=== PATIENT | female | born 1945 | race Caucasian/White ===

== ENCOUNTER 2017-12-08 03:03 | Inpatient (IN) ==
[2017-12-08] MEDS ORDERED: PROCHLORPERAZINE 10 MG TABLET PO ONE (03:13)
[2017-12-08] MEDS ORDERED: DICYCLOMINE 20mg TABLET PO ONE (03:13)
[2017-12-08] MEDS ORDERED: RANITIDINE 150 MG TABLET PO ONE (03:13)
--- NOTE | 2017-12-08 03:30 | Emergency Department Report ---
Abdominal Pain HPI - General Chief Complaint: Abdominal Pain <SeptemberSrikanth [facility] 12/08/17 07:44> Stated Complaint: stomach pains <SeptemberSrikanth [facility] 12/08/17 07:44> Time Seen by Provider: 12/08/17 03:05 <SeptemberSrikanth [facility] 12/08/17 07:44> Source: patient <Tito Markham [facility] 12/08/17 03:31> Mode of arrival: ambulatory <Tito Markham [facility] 12/08/17 03:31> Limitations: no limitations <Tito Markham [facility] 12/08/17 03:31> - History of Present Illness HPI narrative: Patient presents with 24-hour history of diffuse waxing and waning crampy abdominal pain. No nausea, no diarrhea, no chills or fever. Patient has tried 2 doses of Gas-X, and 2 doses of the stool softener she thought she might be constipated. Patient has sat on the toilet and "given a lot of effort" she was able to pass a small amount of firm stool. Patient has been eating normally up until today, and has had very little to eat today due to the pain. Yesterday the patient had a normal intake, 2 normal bowel movements, and patient does not normally have any pains like this. <Tito Markham 12/08/17 03:31> - Related Data Home Medications Medication Instructions Recorded Confirmed Nitroglycerin [Nitrostat] 0.4 mg SL Q5MIN3 PRN #0 12/26/11 12/08/17 LORazepam [Lorazepam] 1 mg PO BID PRN #0 tab 08/08/14 12/08/17 Acetaminophen [Acetaminophen Extra 500 mg PO Q4H PRN 01/12/17 12/08/17 Strength] Clopidogrel [Plavix] 75 mg PO DAILY 09/09/17 12/08/17 Sertraline [Zoloft] 50 mg PO DAILY 09/09/17 12/08/17 Warfarin [Coumadin] 2.5 mg PO HS 09/09/17 12/08/17 Amiodarone [Pacerone] 200 mg PO DAILY 12/08/17 12/08/17 Warfarin Sodium [Coumadin] 5 mg PO 3XW 12/08/17 12/08/17 <SeptemberSrikanth 12/08/17 07:44> Allergies Allergy/AdvReac Type Severity Reaction Status Date / Time amoxicillin Allergy Unknown Verified 12/08/17 03:13 <September,Srikanth 12/08/17 07:44> Review of Systems All systems: reviewed and negative except as stated <ShahrzadTito Gonzalez 03:31> [facility] Patient Stated Medical History Angina Yes Cardiac Arrhythmia Yes: afib Hypertension Yes Myocardial Infarction Yes Hx Urinary Tract Infection Yes Post Menopausal Yes Clinic Medical History (Last Updated 03/20/17 @ 10:56 by Katelyn Osman Jorge) Atrial fib/flutter, transient (Chronic Medical) Chest pain (Chronic Medical) Depression (Chronic Medical) Breast cancer (Resolved Medical) Heart attack (Inactive Medical) <September,Srikanth 12/08/17 07:44> Medical History Updates: UTIs <ShahrzadTito 12/08/17 03:31> Surgical History: Heart stent, Lt TKA, hysterectomy, appendectomy, wrist fx, Cervical impingement <ShahrzadTito 12/08/17 03:31> Family History: Family History (Last Updated 03/20/17 @ 10:57 by Katelyn Osman Jorge) Father No problems noted. <September,Srikanth 12/08/17 07:44> - Social History Smoking status: Never smoker <Shahrzad12/08/17 03:31> Substance use type: does not use <ShahrzadTito 12/08/17 03:31> Alcohol intake frequency: does not drink <Tito Markham 12/08/17 03:31> Household members: none <Tito Markham 12/08/17 03:31> Current occupational status: retired <Tito Markham 12/08/17 03:31> Current occupational exposures/hazards: No <Tito Markham 12/08/17 03:31> Does patient use chewing tobacco?: No <Tito Markham 12/08/17 03:31> Physical Exam - Limitations Limitations: no limitations <Tito Markham 12/08/17 03:31> - General General appearance: alert, in no apparent distress (patient rates her discomfort currently a 2 out of 10,) <Markham12/08/17 03:31> - Normal Exams: Head:: Normocephalic without trauma <Markham12/08/17 03:31> Eyes:: Pupils are PERRLA w/ EOMI, No scleral icterus, irritation, or foreign bodies noted <Mrakham12/08/17 03:31> ENMT:: No facial trauma, nasal exudates, pharyngeal erythema, or exudates are noted <Markham12/08/17 03:31> Neck:: Full range of motion, without adenopathy, JVD, bruits or thyromegaly < Markham12/08/17 03:31> Chest/Respirations:: Clear all dominique, with good airflow, and symmetry bilaterally <Markham12/08/17 03:31> Cardiovascular:: Regular rate and rhythm, without murmur or gallop, Pulses 2+ all extremities, capillary refill, <2 seconds all extremities <Markham12/08/17 03:31> Lymphatic:: No lymphadenopathy, or lymphedema noted <Markham 03:31> Musculoskeletal:: No tenderness, or deformity noted, good range of motion, all extremities <Markham12/08/17 03:31> Integumentary:: No rashes, hives, or bruising noted, hair and nails, without abnormality <Markham12/08/17 03:31> Neurological:: Patient is alert, and oriented, cranial nerves, motor/sensory/ cerebellar, exams w/o gross deficits, to observation <Markham,12/08 03:31> Psychiatric:: Patient exhibits, appropriate attention, emotion and affect < Markham12/08/17 03:31> - Abdominal Exam Abdominal exam: Present: soft, tenderness (mild diffuse tenderness, no guarding no rebounding), normal bowel sounds (slightly diminished but normal in all 4 quadrants). Absent: distention, guarding, rebound, rigidity, trauma, incision, psoas sign, obturator sign, heel tap sign, Knight's sign, Rovsing's sign, tenderness at McBurney's Point, mass, bruit, pulsatile mass, hernia, scar < Tito Markham - 12/08/17 03:31> Course - Consultations Consultation #1: Hospitalist: Will accept pt for admission and treatment of SBO. <SeptemberSrikanth 12/08/17 07:44> Time: 07:31 <September,[facility] 12/08/17 07:32> Vital Signs Temperature 98.8 F 12/08/17 03:03 Pulse Rate 75 12/08/17 03:03 Respiratory Rate 18 12/08/17 03:03 Blood Pressure 131/61 12/08/17 03:03 Pulse Oximetry 94 12/08/17 03:03 Temperature 98.8 F 12/08/17 03:03 Pulse Rate 75 12/08/17 03:03 Respiratory Rate 18 12/08/17 03:03 Blood Pressure 131/61 12/08/17 03:03 Pulse Oximetry 94 12/08/17 03:03 <September,Srikanth 12/08/17 07:44> Abdominal Pain - MDM Narrative Medical decision making narrative: Pt with an SBO and UTI; will treat pt with cefepime for UTI. Hospitalist will admit pt for SBO. <SeptemberFaustoSrikanth M 12/08/17 07:44> Patient is given Compazine, Zantac, and dicyclomine - after medications given, patient is rechecked, and she feels as though she "might be better, but is still having abdominal pain. When given various options, the patient would like to wait and see if the oral medications we'll give her any further relief before deciding whether to go home or whether to check labs and give IV fluids 0510 - on second recheck patient is still having some mild cramping in the right upper quadrant, and is deeply concerned about her lack of bowel movements today. When I explained to her that she has had very little intake, and that is the primary stimulus for bowel movement, her concern was not diminished. Patient has an IV started, is getting Toradol 30 mg IV with 1 L normal saline, and we will undertake labs and abdominal series x-rays to further evaluate the patient's primary complaint of generalized abdominal cramping pain Patient care is transferred to Dr. Aggarwal, pending results of IV fluids, medications, and lab/x-rays <Tito Markham - 12/08/17 05:41> - Differential Diagnosis Differential diagnosis: Likely: abdominal pain, acute appendicitis, constipation , diverticulitis, gastroenteritis, pancreatitis, small bowel obstruction <September [facility] - 12/08/17 05:55> - Medical Records Attestation: I reviewed the patient's medical records. <September,[facility] 05:55> - Lab Data Attestation: I reviewed the patient's lab results. <[facility] 12/08/17 05: 55> Result diagrams: 12/08/17 05:51 12/08/17 05:51 <September,[facility] 12/08/17 07:44> Lab Results 12/08/17 12/08/17 12/08/17 Range/Units 05:51 05:51 05:51 WBC 8.8 (4.5-11.0) T/MM3 RBC 4.04 (4.00-5.20) M/MM3 Hgb 13.0 (12-16) GM/DL Hct 38.5 (36-46) % MCV 95.3 (80-100) UM3 MCH 32.2 (26-34) UUG MCHC 33.8 (31-37) GM/DL RDW Std Deviation 45.4 (36.9-50.2) FL Plt Count 205 (130-400) T/MM3 MPV 10.3 (9.4-12.4) UM3 Immature Gran % (Auto) 0.2 (0.0-0.5) % Neut % (Auto) 76.0 H (33-66) % Lymph % (Auto) 14.7 L (23-45) % [place] % (Auto) 8.3 (0-9.0) % Eos % (Auto) 0.6 (0-4) % Baso % (Auto) 0.2 (0-2) % Neut # (Auto) 6.7 (1.8-7.7) T/MM3 Lymph # (Auto) 1.3 (1-4.8) T/MM3 [place] # (Auto) 0.7 (0-0.8) T/MM3 Eos # (Auto) 0.1 (0-0.5) T/MM3 Baso # (Auto) 0.0 (0-0.2) T/MM3 Abs Immat Gran (auto) 0.02 (0.00-0.03) T/MM3 Turbidity < 20 (0-20) Sodium 149 H (136-146) MEQ/L Potassium 4.1 (3.6-5) MEQ/L Chloride 113 H (98-107) MEQ/L Carbon Dioxide 21 L (22-30) MEQ/L Anion Gap 15 (5-15) meq/L BUN 23.0 H (7-17) MG/DL Creatinine 0.8 (0.7-1.2) mg/dL Estimated Creat Clear 61 (>50) mL/min GFR Calculation 71 (>60) mL/min BUN/Creatinine Ratio 29 H (6-26) RATIO Glucose 122 H (65-110) MG/DL Calculated Osmolality 291 H (261-280) MOSM/KG Calcium 9.7 (8.4-10.2) MG/DL Total Bilirubin 0.50 (0.20-1.30) MG/DL Conjugated Bilirubin 0.00 (0.00-0.30) mg/dL Unconjugated Bilirubin 0.50 (0.00-1.1) mg/dL Icterus Index < 2 (0-7) AST 21 (14-36) U/L ALT 15 (1-35) U/L Alkaline Phosphatase 61 (38-126) U/L Total Protein 7.8 (6.3-8.2) g/dL Albumin 4.8 (3.5-5.0) g/dL Globulin 3.0 (2.4-3.6) G/DL Albumin/Globulin Ratio 1.6 (1.1-2.2) RATIO Lipase 205 (23-300) U/L Specimen Hemolysis < 15 (0-25) Ur Collection Type Urine, void-cc/notcc Urine Color Yellow (YELLOW) Urine Clarity Sl cloudy Urine pH 6.0 (5.0-8.0) Ur Specific [place] 1.020 (1.015-1.025) Urine Protein Trace A (NEGATIVE) Urine Glucose (UA) Negative (NEGATIVE) Urine Ketones Negative (NEGATIVE) Urine Occult Blood Trace-intact (NEGATIVE) Urine Nitrate Negative (NEGATIVE) Urine Bilirubin Negative (NEGATIVE) Urine Urobilinogen 0.2 (NORMAL) EU/DL Ur Leukocyte Esterase 1+ A (NEGATIVE) Urine RBC 0-1 (0-3) /HPF Urine WBC 50-200 H (0-5) /HPF Urine Bacteria 4+ H (NEGATIVE) Ur Culture Indicated? Cult reflexed &setup <12/08/17 07:44> - Radiology Data Attestation: I reviewed the patient's radiology results. < 05:55> KUB: Nonobstructing bowel gas pattern. No free air or fluid under the diaphragm. Dilated loops of small bowel present with air-fluid levels concerning for SBO. CT abd/pelv: FINDINGS: Abdomen pelvis:Liver, gallbladder, spleen, pancreas, both adrenals and both kidneys are normal.Normal caliber aorta. Prior appendectomy. There are multiple distended small bowel segments in the abdomen which measure up to 3.5 cm, with distal decompression compatible with a bowel obstruction. No inguinal hernia. Mild fecal retention in the large intestine. Sigmoid diverticulosis without diverticulitis. Absent uterus. Unremarkable urinary bladder. No free fluid or free air. Multilevel degenerative change of the spine. IMPRESSION: Mid small bowel obstruction. <12/08/17 07:32> Disposition Clinical Impression: Hx SBO <12/08/17 07:44> Disposition: 02 To [facility] Acute Care <12/08/17 07:44> Print Language: Djib[place]ian <12/08/17 07:44> Condition: Improved <12/08/17 07:44> Instructions: <12/08/17 07:44> Prescriptions: No Action Clopidogrel [Plavix] 75 mg PO DAILY Warfarin [Coumadin] 2.5 mg PO HS Amiodarone [Pacerone] 200 mg PO DAILY Warfarin Sodium [Coumadin] 5 mg PO 3XW Nitroglycerin [Nitrostat] 0.4 mg SL Q5MIN3 PRN #0 PRN Reason: Chest Pain LORazepam [Lorazepam] 1 mg PO BID PRN #0 tab PRN Reason: PRN ORDERS Acetaminophen [Acetaminophen Extra Strength] 500 mg PO Q4H PRN PRN Reason: Pain Sertraline [Zoloft] 50 mg PO DAILY <May,Srikanth 12/08/17 07:44> Referrals: Capri Maldonado MD [Primary Care Provider] - <SeptemberSrikanth 12/08/17 07:44> Forms: <SeptemberSrikanth 12/08/17 07:44> Time of Disposition: 07:44 <September,Srikanth 12/08/17 07:44> - Seen By: physician <SeptemberSrikanth 12/08/17 07:44>
[2017-12-08] MEDS ORDERED: KETOROLAC 30 MG/ML INJECTION IVP ONE (05:13)
[2017-12-08] MEDS ORDERED: NS 1,000 ML IV ONE (05:13)
[2017-12-08] MEDS: SALINE FLUSH 10ml SYRINGE IVF PRN ×2 (05:49→12:56)
[2017-12-08] MEDS ORDERED: NS 1,000 ML IV SCH (06:15)
[2017-12-08] MEDS ORDERED: IOHEXOL 300mg/ml 100ml INJECTION ONE (06:17)
[2017-12-08] MEDS ORDERED: CEFEPIME 1 GM in NS 100 ML IV ONE (07:35)
[2017-12-08] MEDS: 1/2 NS 1,000 ML IV SCH ×2 (09:30→20:37)
[2017-12-08] MEDS ORDERED: ONDANSETRON 4 MG/2 ML INJECTION IVP PRN (09:33)
[2017-12-08] MEDS ORDERED: MORPHINE SULFATE 2mg INJECTION IVP PRN (09:33)
--- NOTE | 2017-12-08 10:17 | History & Physical Report ---
History of Present Illness Date: 12/08/17 Chief complaint: SBO, UTI HPI: Cindy Machuca is a pleasant patient of Dr. Maldonado, who also follows with Dr. Stepan Fuentes for her a-fib and CAD as well as Dr. Millan due to her history of breast cancer in 1999. She reports that yesterday, 12/07/17, she began to have colicky, gas like abdominal pain which progressively worsened throughout the night. She also complains of some nausea but denies any vomiting. She denies any recent illnesses, fevers, chills, chest pain, shortness of breath or diarrhea. She does admit to constipation and reports having a hard stool yesterday. While at home, she tried 2 doses of Gas-X and 2 doses of stool softener without improvement. She has a history of bowel obstruction in 2014. Due to her increasing pain, she presented to [facility] ED today, 12/08/17. Labs revealed hypernatremia (Na 149) with mild hyperglycemia (Glu 122). She denies a history of diabetes. UA revealed 50-200 WBC with 4+ bacteria. She has a history of frequent UTIs and is unable to specify if she has had any recent dysuria or urinary symptoms. CT abdomen/pelvis revealed mid small bowel obstruction with noted diverticulosis and no diverticulitis. Dr. Lee was consulted and she was accepted into inpatient status for further evaluation, IV hydration, close monitoring for deterioration and possible surgical consultation. Immediately prior to her leaving the ED to be transferred to the floor, she had a large BM. She denies any blood or dark tarry stools. Review of Systems All systems PM: 10-point ROS was reviewed, no additional remarkable complaints except - Constitutional Constitutional: Present: fatigue, weakness (generalized). Absent: fever(s) Comments: Decreased appetite - EENMT Eyes: Absent: diplopia, loss of vision, photophobia Ears: Absent: ear pain Balance: Absent: falling to one side Nose: Absent: nosebleeds Mouth/Throat: Present: dry mouth. Absent: sore throat, changes in swallowing - Cardiovascular Cardiovascular: Present: edema. Absent: chest pain, palpitations, syncope, dyspnea on exertion, orthopnea Rhythm: Present: regular rhythm Vascular: Present: pedal edema. Absent: pallor of an extermity, unilateral swelling - Respiratory Respiratory: Absent: cough, dyspnea, hemoptysis, dyspnea on exertion, wheezing - Gastrointestinal Gastrointestinal: Present: abdominal pain, constipation, nausea. Absent: diarrhea, hematochezia, melena, vomiting - Genitourinary Genitourinary: Absent: flank pain, hematuria Menstruation: post hysterectomy - Musculoskeletal Musculoskeletal: Present: muscle weakness. Absent: back pain, deformity, limited range of motion - Integumentary/Breasts Integumentary: Absent: rash - Neurological Neurological: Present: weakness. Absent: confusion, dizziness, focal weakness - Psychiatric Psychiatric: Present: depression - Endocrine Endocrine: Absent: cold intolerance, heat intolerance, palpitations - Hematologic/Lymphatic Hematologic/Lymphatic: Present: easy bruising (warfarin and Plavix) - Allergic/Immunologic Allergic/Immunologic: Absent: seasonal rhinorrhea Past Medical History Medical History: Medical History (Last Updated 12/08/17 @ 11:23 by PAUL Hernandez) Constipation GERD (gastroesophageal reflux disease) History of recurrent UTI (urinary tract infection) follows with Dr. Martinez. History of small bowel obstruction 2014 - laproscopic evaluation for SBO with enterolysis and subsequent appendectomy due to acute appendicitis with periappendiceal abscess; Dr. Avery Farnsworth Hyperlipidemia Hypertension Atrial fib/flutter, transient Chest pain Depression Breast cancer 1999- underwent chemo and radiation following right lumpectomy, Dr. Millan. Heart attack 2015 Surgical History: Laporscopy of abdomen with enterolysis for SBO and subsequent appendectomy for acute appendicitis with periappendical abscess - Dr. Rufina Farnsworth at [facility] in [place] - 06/2014. Heart stent - 2015. Left TKA - 2006. Right breast lumpectomy (history of breast cancer) - 1999. Cerivcal laminectomy. Hysterectomy. 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 Maldonado. Cardio - Dr. Stepan Fuentes. Surg - Dr. Rufina Farnsworth. Onc - Dr. Millan. Medications Home Medications Medication Instructions Recorded Confirmed Type Nitroglycerin [Nitrostat] 0.4 mg SL Q5MIN3 PRN #0 12/26/11 12/08/17 History LORazepam [Lorazepam] 1 mg PO BID PRN #0 tab 08/08/14 12/08/17 History Acetaminophen [Acetaminophen Extra 500 mg PO Q4H PRN 01/12/17 12/08/17 History Strength] Clopidogrel [Plavix] 75 mg PO DAILY 09/09/17 12/08/17 History Sertraline [Zoloft] 50 mg PO DAILY 09/09/17 12/08/17 History Warfarin [Coumadin] 2.5 mg PO HS 09/09/17 12/08/17 History Amiodarone [Pacerone] 200 mg PO DAILY 12/08/17 12/08/17 History Warfarin Sodium [Coumadin] 5 mg PO 3XW 12/08/17 12/08/17 History Allergies Allergy/AdvReac Type Severity Reaction Status Date / Time amoxicillin Allergy Unknown Verified 12/08/17 03:13 Exam Vital Signs: Temperature 99.3 F 12/08/17 09:00 Pulse Rate 66 12/08/17 09:00 Respiratory Rate 20 12/08/17 09:00 Blood Pressure 112/60 12/08/17 09:00 Pulse Oximetry 94 12/08/17 09:00 Height/Weight/BMI: Height 5 ft 9 in Weight 207 lb 7.28 oz Body Mass Index 30.6 Comments: Patient is seen immediately upon arrival to the medical floor. She denies any current pain or nausea. - Constitutional Present: no acute distress, well nourished, well developed, obese, cooperative - Routine HEENT Exam Head: Present: normocephalic, atraumatic Eye: Present: PERRL. Absent: conjunctival icterus ENT: Present: mucous membranes dry, oropharynx clear, dentition normal - Routine Neck Exam Present: supple, trachea midline - Routine Chest/Breast/Axilla Exam Chest wall: Absent: pacemaker - Routine Respiratory Exam Present: CTA bilaterally. Absent: respiratory distress, wheezes - Routine Cardiovascular Exam Present: RRR, S1, S2 - Routine Abdominal Exam Present: soft, non distended, non tender Comments: Hypoactive bowel sounds. - Routine Extremities Exam Present: edema (L>R), non tender, full ROM, pulses intact - Routine Back/Spine/Pelvis Exam Back/Spine: Present: full ROM. Absent: vertebral tenderness - Routine Skin Exam Present: intact, dry, warm Comments: Afebrile. - Routine Neurological Exam Present: alert, oriented X3, moving all extremities, hearing grossly intact, normal speech - Routine Psychiatric Exam Present: normal affect, cooperative Results - Labs CBC & Chem 7: 12/08/17 05:51 12/08/17 05:51 Microbiology Results: Microbiology 12/08/17 05:51 Urine, Voided (Cc/notcc) Urine Culture - Preliminary Culture Initiated - Results Pending Assessment and Plan Assessment and Plan: Assessment Acute small bowel obstruction Acute abdominal pain with nausea UTI, present on admission Hypernatremia (Na 149), present on admission A-fib Chronic anticoagulation on warfarin secondary to a-fib Hypertension Hyperlipidemia Constipation Depression History of breast cancer - 1999 Hx recurrent UTI with antimicrobial resistant organism Obesity with BMI 30.6 Plan Patient admitted to inpatient status under the care of Dr. Lee. While in the ED, she received 1L NS bolus as well as ketorolac 30mg IV x 1 dose , compazine 10mg po x 1 dose and Zantac 300mg po x 1 dose. She also received Bentyl 20mg po x 1 dose. Nursing reports patient had a large BM immediately prior to being transferred to the medication floor. Pain improved and nausea resolved. Continue pain control with morphine PRN. Zofran as needed for nausea/vomiting. Given the patient's improved condition as well as resolution in nausea without vomiting, will hold off on NG placement. Recommend placement of NG if patient begins vomiting or pain worsens. Maintain NPO status with sips and chips. May take home medications. Continue amiodarone 200mg daily, Plavix 75mg daily and Coumadin for treatment of a-fib and DVT prophylaxis. Pharmacy to manage Coumadin. Protonix for GI protection. Will check INR now given chronic anticoagulation with warfarin. Pharmacy consulted for warfarin management. Recheck labs in AM to monitor blood counts, electrolytes and renal function. Upon discharge, patient's care will be returned to her PCP, Dr. Maldonado. Patient requests to be a LIMITED CODE and does not want intubation. DVT Prophylaxis: SCD's, Coumadin GI Prophylaxis: Protonix Resuscitation Status: Do Not Intubate - Time spent with patient Time with patient PN: 70 minutes - Physician Narrative Physician: Mian Lee MD Narrative: Date: 12/08/17 Time: 1400 Have independently interviewed & examined pt. Chart reviewed. Case discussed with ED physician & my PA. Care plan developed with my supervision; agree with above. Started feeling ab pain yesterday - diffuse discomfort, notes more so to RUQ under rib cage. Would wax and wane. Positional changes increased pain. Nothing really decreased discomfort. Ate minimally yesterday-not hungry. Not change in symptoms with fluid increase. Progressively more nauseated. Last stool on 12/06- small and hard. No recent diarrhea. Not having f/c. Breathing well. No chest pressure, pain, or palpitations. Presents to ED for evaluation as symptoms persistent. KUB and CT ab/pelvis showing evidence for SBO. Had large stool as leaving ER-not passing flatus since her bowel movement. Lungs: clear bilaterally CV: regular AB: soft, flat, nd. BS very minimal. No rebound. EXT: trace edema, SCD in place MSE: awake alert appropriate Plan: Inpatient admission for treatment of small bowel obstruction determined radiographically. NPO for bowel rest due to SBO. Hold on NG at this time as nausea not intractable. Control pain and nausea. IVF for hydration and to correct hypernatremia. Monitor lab. Recheck KUB/upright in am. Care to return to PCP at time of discharge. Hospital Course Summary Disclaimer: The visit summary below is not to be considered part of the above Progress Note. Hospital Course: 12/08/17 Patient admitted to inpatient status under the care of Dr. Lee. While in the ED, she received 1L NS bolus as well as ketorolac 30mg IV x 1 dose , Compazine 10mg po x 1 dose and Zantac 300mg po x 1 dose. She also received Bentyl 20mg po x 1 dose. Nursing reports patient had a large BM immediately prior to being transferred to the medication floor. Pain improved and nausea resolved. Continue pain control with morphine PRN. Zofran as needed for nausea/vomiting. Given the patient's improved condition as well as resolution in nausea without vomiting, will hold off on NG placement. Recommend placement of NG if patient begins vomiting or pain worsens. Maintain NPO status with sips and chips. May take home medications. Continue amiodarone 200mg daily, Plavix 75mg daily and Coumadin for treatment of a-fib and DVT prophylaxis. Pharmacy to manage Coumadin. Protonix for GI protection. Will check INR now given chronic anticoagulation with warfarin. Pharmacy consulted for warfarin management. Recheck labs in AM to monitor blood counts, electrolytes and renal function. Upon discharge, patient's care will be returned to her PCP, Dr. Maldonado. Patient requests to be a LIMITED CODE and does not want intubation.
[2017-12-08] MEDS ORDERED: ACETAMINOPHEN 500 MG TABLET PO PRN (11:34)
[2017-12-08] MEDS ORDERED: LORazepam 1 MG TABLET PO PRN (11:34)
[2017-12-08] MEDS ORDERED: WARFARIN - PHARMACY CONSULT MC ONE (11:34)
[2017-12-08] MEDS ORDERED: NITROGLYCERIN 0.4 MG SUBLINGUAL TABLET SL PRN (11:34)
[2017-12-08] MEDS ORDERED: WARFARIN 2 MG TABLET PO ONE (12:12)
--- NOTE | 2017-12-08 12:12 | Pharmacy Consult ---
Pharmacy Consult-Warfarin - Laboratory Information 12/08/17 12/08/17 12/08/17 05:51 05:51 11:50 Hgb 13.0 Hct 38.5 INR 2.95 H AST 21 ALT 15 Albumin 4.8 - Consult Information COUMADIN CONSULT (Initial): Dx: A. FIB Baseline INR = 2.96. Will give Warfarin 2mg today. Thank you.
[2017-12-08] MEDS: PANTOPRAZOLE 40 MG INJECTION IVP SCH (12:55)
--- NOTE | 2017-12-08 13:37 | XRay Report ---
Indication: abd pain XR acute abdomen series: Comparison: Previous chest 09/09/2017 Technique: Single view chest and supine and erect films of the abdomen Findings: Examination chest showed normal heart, mediastinum and central vascularity. Mild chronic changes are suggested in the lungs. No acute consolidations or effusions are seen. Supine and erect films of the abdomen showed somewhat disproportionate prominence of some small bowel loops suggesting a partial small bowel obstruction. Moderate stool is seen in the rectal vault. Impression: 1. Mild chronic lung changes without acute cardiopulmonary findings. 2. Somewhat disproportionate loops of small bowel in the left mid abdomen which could indicate a partial small bowel obstruction. 3. No free air identified on the upright view. .
--- NOTE | 2017-12-08 13:40 | CT Scan Report ---
Indication: Enlarged small intestine with air-fluid levels CT abdomen pelvis w con: Comparison: Acute abdominal series earlier in the morning Technique: Patient scanned from above the diaphragm to below the pubic symphysis after 95 cc Omni 300 intravenous contrast is utilized with dose reduction imaging technology and reformatted sagittal and coronal image planes. Findings: Heart size is within normal limits. Lung bases demonstrate no acute findings. Liver, spleen, gallbladder, biliary tree, pancreas and adrenals are unremarkable. Both kidneys are unremarkable. As suspected from the plain films patient shows disproportionate dilatation of several loops of small bowel suggesting a partial small bowel obstruction. Patient showed diverticulosis involving the distal bowel without acute diverticulitis. No free air or free fluid is identified. Bladder contour is unremarkable. Reformatted imaging of the spine showed no fractures but did show some degenerative changes throughout the visualized thoracolumbar spine. Impression: 1. Partial small bowel obstruction. 2. Diverticulosis with moderate volume of stool but no acute diverticulitis. 3. No free air or free fluid or free air noted. 4. Findings were communicated to the ordering ER clinician when callback study provided. .
[2017-12-08] MEDS: AMIODARONE 200 MG TABLET PO SCH (17:20)
[2017-12-08] MEDS: CLOPIDOGREL 75 MG TABLET PO SCH (17:21)
[2017-12-08] MEDS: CEFTRIAXONE 1 G in NS 100 ML IV SCH (17:49)
[2017-12-08] MEDS ORDERED: NS FLUSH BAG 500ml IV PRN (17:50)
[2017-12-08] MEDS ORDERED: WARFARIN 2.5 MG TABLET PO SCH (21:00)
[2017-12-09] MEDS: 1/2 NS 1,000 ML IV SCH ×2 (06:56→22:38)
--- NOTE | 2017-12-09 07:57 | XRay Report ---
EXAM: XR abdomen 2V DICTATION LOCATION: [facility] INDICATION: F/U SBO COMPARISON STUDY: December 08, 2017 FINDINGS: Abdomen: There are few mildly distended small bowel loops located within the mid abdomen. There is gas and stool within the colonic bowel loops. No abnormal radiopacities overlying the abdomen. The lung bases are clear. Skeletal Structures: The visualized skeletal structures are within normal limits for the patient's age. IMPRESSION: 1. Decrease in visible gas distended small bowel loops when compared with one day earlier with a few mild residual slightly prominent small bowel loops in the midabdomen. There is gas and stool within the colon and rectum. Continued follow-up is recommended. .
[2017-12-09] MEDS ORDERED: WARFARIN 5 MG TABLET PO SCH (09:00)
[2017-12-09] MEDS: SALINE FLUSH 10ml SYRINGE IVF PRN (09:02)
[2017-12-09] MEDS: PANTOPRAZOLE 40 MG INJECTION IVP SCH (09:02)
[2017-12-09] MEDS: SERTRALINE 50 MG TABLET PO SCH (09:03)
[2017-12-09] MEDS: AMIODARONE 200 MG TABLET PO SCH (09:03)
[2017-12-09] MEDS: CLOPIDOGREL 75 MG TABLET PO SCH (09:03)
[2017-12-09 09:15] VITALS: BMI 30.7
--- NOTE | 2017-12-09 09:46 | Pharmacy Consult ---
Pharmacy Consult-Warfarin - Laboratory Information 12/08/17 12/08/17 12/08/17 05:51 05:51 11:50 Hgb 13.0 Hct 38.5 INR 2.95 H AST 21 ALT 15 Albumin 4.8 12/09/17 12/09/17 04:03 04:03 Hgb 11.5 L D Hct 34.6 L INR 3.06 H AST ALT Albumin - Consult Information COUMADIN CONSULT: Day 2 Diagnosis: A. FIB Baseline INR = 2.96. Patient home dose is Warfarin 5 mg MoWeFr and 2.5 mg SuTuThSa. Date INR Dose 12/08 2.95 2 mg 12/09 3.06 Hold today Will hold Warfarin today. The pharmacy will continue to monitor the INR's and adjust the warfarin accordingly. Thank you for the Warfarin Protocol, George Rosado, Pharmacist.
--- NOTE | 2017-12-09 10:24 | Progress Note ---
- Date 12/09/17 Subjective: Cindy is doing well this morning. She denies any nausea/vomiting. She has a minimal amount of epigastric discomfort but only noted it on palpation of her abdomen. She has been passing a small amount of flatus. She has been up and ambulatory. She denies feeling short of breath or having any chest pain. Objective Vital signs: Temperature 98.7 F 12/09/17 08:00 Pulse Rate 58 L 12/09/17 08:00 Respiratory Rate 16 12/09/17 08:00 Blood Pressure 111/63 12/09/17 08:00 Pulse Oximetry 93 12/09/17 08:00 Height/Weight/BMI: Height 1.75 m Weight 94.4 kg Body Mass Index 30.7 - Constitutional Present: no acute distress, well nourished, well developed - Routine HEENT Exam Head: Present: normocephalic Eye: Present: PERRL. Absent: conjunctival icterus, scleral injection ENT: Present: mucous membranes moist, oropharynx clear - Routine Respiratory Exam Present: CTA bilaterally - Routine Cardiovascular Exam Present: RRR, S1, S2 - Routine Abdominal Exam Present: soft, normoactive bowel sounds, non distended, non tender - Routine Extremities Exam Present: no edema - Routine Musculoskeletal Exam Musculoskeletal: Present: no clubbing or cyanosis - Routine Skin Exam Present: intact, dry, warm - Routine Neurological Exam Present: alert, oriented X3, CN II-XII intact, moving all extremities, vision grossly intact, hearing grossly intact, normal speech. Absent: sensory deficit , motor deficit, altered mental status, facial asymmetry - Routine Psychiatric Exam Present: normal affect, normal thought process, cooperative Results - Labs CBC & Chem 7: 12/09/17 04:03 12/09/17 04:03 Microbiology Results: Microbiology 12/08/17 05:51 Urine, Voided (Cc/notcc) Urine Culture - Preliminary No Growth After 1 Day Assessment and Plan Assessment and Plan: Assessment Acute small bowel obstruction Acute abdominal pain with nausea UTI (POA) Hypernatremia (Na 149), present on admission Leukopenia (not POA) A-fib Chronic anticoagulation on warfarin secondary to a-fib Hypertension Hyperlipidemia Constipation Depression History of breast cancer - 1999 Hx recurrent UTI with antimicrobial resistant organism Obesity with BMI 30.6 Plan abdominal symptoms much improved. Will advance diet to clears. WBC decreased to 4.2. Na improved to 147. K slightly decreased to 3.5 and oral KDur ordered. Renal function is stable. Reduce rate of IVF. UC: no growth after 1 day. INR 3.06; Coumadin per pharmacy. Discussed with Dr. Lee. DVT Prophylaxis: SCD's, Coumadin GI Prophylaxis: Protonix Resuscitation Status: Do Not Intubate - Time spent with patient Time with patient PN: 25 minutes - Physician Narrative Physician: Mian Lee MD Narrative: Date: 12/09/17 Time: 1321 Have independently interviewed and examined pt. Chart reviewed. Case discussed with my LAB INSTRUCTOR. Care plan developed with my supervision; agree with above. Doing better today. Not having the ab pain and nausea she was. Not had further stool (but feels like close to passing bowel). Reports flatus. Advance to clears this morning and doing okay with liquid intake-taking in very slowly. Not that hungry. Able to be up and move well-not dizzy or unsteady with positional changes. Breathing stable. No chest pressure, pain, or palpitations. No f/c. Urine output increased with IVF. Lungs: clear bilaterally CV: regular AB: soft nt/nd BS decreased; no rebound MSE: awake alert appropriate KUB: Decrease in visible gas distended small bowel loops when compared with one day earlier with a few mild residual slightly prominent small bowel loops in the midabdomen. Plan: Advance to clear liquids - advised caution with intake to avoid ab pain or nausea. Encourage ambulation. Could try Dulcolax suppository to help motivate colonic stool. Decrease IVF as diet being advanced and pt having good urine output. Monitor lab. Hospital Course Summary Disclaimer: The visit summary below is not to be considered part of the above Progress Note. Hospital Course: 12/08/17 Patient admitted to inpatient status under the care of Dr. Lee. While in the ED, she received 1L NS bolus as well as ketorolac 30mg IV x 1 dose , Compazine 10mg po x 1 dose and Zantac 300mg po x 1 dose. She also received Bentyl 20mg po x 1 dose. Nursing reports patient had a large BM immediately prior to being transferred to the medication floor. Pain improved and nausea resolved. Continue pain control with morphine PRN. Zofran as needed for nausea/vomiting. Given the patient's improved condition as well as resolution in nausea without vomiting, will hold off on NG placement. Recommend placement of NG if patient begins vomiting or pain worsens. Maintain NPO status with sips and chips. May take home medications. Continue amiodarone 200mg daily, Plavix 75mg daily and Coumadin for treatment of a-fib and DVT prophylaxis. Pharmacy to manage Coumadin. Protonix for GI protection. Will check INR now given chronic anticoagulation with warfarin. Pharmacy consulted for warfarin management. Recheck labs in AM to monitor blood counts, electrolytes and renal function. Upon discharge, patient's care will be returned to her PCP, Dr. Maldonado. Patient requests to be a LIMITED CODE and does not want intubation. 12/09/17 Abdominal symptoms much improved. KUB/Up right showing radiographic improvement. Will advance diet to clears. May have Dulcolax suppository as needed for constipation. WBC decreased to 4.2. Na improved to 147. K slightly decreased to 3.5 and oral KDur ordered. Renal function is stable. Reduce rate of IVF. Urine culture: no growth after 1 day. INR 3.06; Coumadin per pharmacy.
[2017-12-09] MEDS ORDERED: BISACODYL 10 MG SUPPOSITORY RECTALLY PRN (13:18)
[2017-12-09] MEDS: CEFTRIAXONE 1 G in NS 100 ML IV SCH (16:51)
[2017-12-10] MEDS: 1/2 NS 1,000 ML IV SCH (07:49)
[2017-12-10] MEDS ORDERED: FALL RISK - PHARMACY CONSULT MC ONE (08:10)
--- NOTE | 2017-12-10 08:30 | Pharmacy Consult ---
Pharmacy Consult-Warfarin - Laboratory Information 12/08/17 12/08/17 12/08/17 05:51 05:51 11:50 Hgb 13.0 Hct 38.5 INR 2.95 H AST 21 ALT 15 Albumin 4.8 12/09/17 12/09/17 12/10/17 04:03 04:03 04:02 Hgb 11.5 L D 12.2 Hct 34.6 L 36.5 INR 3.06 H AST ALT Albumin 12/10/17 04:02 Hgb Hct INR 2.92 H AST ALT Albumin - Consult Information COUMADIN CONSULT: Day 3 Diagnosis: A. FIB Baseline INR = 2.96. Patient home dose is Warfarin 5 mg MoWeFr and 2.5 mg SuTuThSa. Date INR Dose 12/08 2.95 2 mg 12/09 3.06 Held 12/10 2.92 1 mg I will give Warfarin 1 mg p.o. today @ noon. The pharmacy will continue to monitor the INR's and adjust the warfarin accordingly. Thank you for the Warfarin Protocol, George Rosado, Pharmacist.
[2017-12-10] MEDS: AMIODARONE 200 MG TABLET PO SCH (08:51)
[2017-12-10] MEDS: SERTRALINE 50 MG TABLET PO SCH (08:51)
[2017-12-10] MEDS: CLOPIDOGREL 75 MG TABLET PO SCH (08:51)
--- NOTE | 2017-12-10 08:51 | Progress Note ---
- Date 12/10/17 Subjective: Cindy was in her chair, drinking a brown cow. She's afraid to advance her diet to more than clear liquids. While she doesn't have any abdominal pain, nausea, or vomiting, she also hasn't had a bowel movement since the day of admission and she's fearful that her symptoms will worsen if she begins to eat again. She also woke up with a painful left achilles and calf - she thought it was possibly irritated by the SCDs. No chest pain or SOA. On exam she became tearful with palpation. Objective Vital signs: Temperature 98.0 F 12/10/17 07:37 Pulse Rate 60 12/10/17 07:37 Respiratory Rate 16 12/10/17 07:37 Blood Pressure 110/58 12/10/17 07:37 Pulse Oximetry 96 12/10/17 07:37 Height/Weight/BMI: Height 1.75 m Weight 91.7 kg Body Mass Index 30.7 - Constitutional Present: no acute distress, well nourished, well developed - Routine HEENT Exam Head: Present: normocephalic Eye: Present: PERRL. Absent: conjunctival icterus, scleral injection ENT: Present: mucous membranes moist, oropharynx clear - Routine Respiratory Exam Present: CTA bilaterally - Routine Cardiovascular Exam Present: RRR, S1, S2 - Routine Abdominal Exam Present: soft, non distended, non tender. Absent: normoactive bowel sounds ( hypoactive) - Routine Extremities Exam Present: no edema, calf tenderness (and achilles tenderness on left) - Routine Musculoskeletal Exam Musculoskeletal: Present: moving extremities well - Routine Skin Exam Present: intact, dry, warm - Routine Neurological Exam Present: alert, oriented X3, CN II-XII intact, normal speech - Routine Psychiatric Exam Present: normal affect, normal thought process, cooperative Results - Labs CBC & Chem 7: 12/10/17 04:02 12/10/17 04:02 Microbiology Results: Microbiology 12/08/17 05:51 Urine, Voided (Cc/notcc) Urine Culture - Final Streptococcus viridans group Assessment and Plan Assessment and Plan: Assessment Acute small bowel obstruction Acute abdominal pain with nausea UTI (POA) with Strep viridans Hypernatremia (Na 149), present on admission - resolved Leukopenia (not POA) A-fib Chronic anticoagulation on warfarin secondary to a-fib Hypertension Hyperlipidemia Constipation Depression History of breast cancer - 1999 Hx recurrent UTI with antimicrobial resistant organism Obesity with BMI 30.6 Plan Advance diet as tolerated. Pt will try dulcolax suppository if no bowel movement with brown cow. will obtain venous doppler of left leg - INR is therapeutic so DVT is unlikely, though she was very tender. K still slightly low. IVF have been dc'd. Will give another dose of Kdur. Na 146, down from 147. UC +strep viridans -- cont Rocephin. DVT Prophylaxis: SCD's, Coumadin GI Prophylaxis: Protonix Resuscitation Status: Do Not Intubate - Physician Narrative Physician: Alka Jacinto MD Narrative: Date: 12/10/17 Time: 9:50 I examined the patient independently. I reviewed this chart, the patient history , and the [employer]ELOPER's/PA's documented findings as above. We discussed and formulated the assessment and plan as above with the additions below.-Dr. Jacinto Patient was seen this morning in her room. She was sitting up in bed eating cream of wheat. She stated she did not have any abdominal pain unless her abdomen was palpated. She denies any nausea or vomiting. She denies any shortness of breath. She denies any dysuria. She does complain of some calf pain in the left mid to low calf. She thinks the SCDs irritated it. She states she was able to walk to the bathroom without difficulty. On exam she is alert and oriented and in no acute distress. Chest is clear to auscultation. Cardiovascular reveals a regular rate and rhythm. Abdomen is soft with normal bowel sounds. She reports some tenderness to palpation in the right mid abdomen, but there is no rebound or guarding. No abdominal distention. Extremities are free of clubbing, cyanosis or edema. She has a small bruise on the upper left negron but no other erythema or bruising, specifically no abnormalities in the posterior calf where she has pain. She has some point tenderness over the mid to lower posterior calf. No swelling is noted in this area. Skin is warm and dry and without rashes. Ultrasound left leg reveals no evidence of acute DVT Impression and plan Small bowel obstruction-improving. Advance diet as tolerated. Will give Dulcolax suppository this morning if no bowel movement after breakfast. Regarding UTI with strep viridans-she received Rocephin on December 08 and . We' ll switch to Keflex today. Regarding calf pain, venous Doppler was negative for DVT. Increase ambulation today and monitor. Continue warfarin protocol by pharmacy Discontinue Protonix Likely dismiss to home soon if she continues to show improvement. Hospital Course Summary Disclaimer: The visit summary below is not to be considered part of the above Progress Note. Hospital Course: 12/08/17 Patient admitted to inpatient status under the care of Dr. Lee. While in the ED, she received 1L NS bolus as well as ketorolac 30mg IV x 1 dose , Compazine 10mg po x 1 dose and Zantac 300mg po x 1 dose. She also received Bentyl 20mg po x 1 dose. Nursing reports patient had a large BM immediately prior to being transferred to the medication floor. Pain improved and nausea resolved. Continue pain control with morphine PRN. Zofran as needed for nausea/vomiting. Given the patient's improved condition as well as resolution in nausea without vomiting, will hold off on NG placement. Recommend placement of NG if patient begins vomiting or pain worsens. Maintain NPO status with sips and chips. May take home medications. Continue amiodarone 200mg daily, Plavix 75mg daily and Coumadin for treatment of a-fib and DVT prophylaxis. Pharmacy to manage Coumadin. Protonix for GI protection. Will check INR now given chronic anticoagulation with warfarin. Pharmacy consulted for warfarin management. Recheck labs in AM to monitor blood counts, electrolytes and renal function. Upon discharge, patient's care will be returned to her PCP, Dr. Maldonado. Patient requests to be a LIMITED CODE and does not want intubation. 12/09/17 Abdominal symptoms much improved. KUB/Up right showing radiographic improvement. Will advance diet to clears. May have Dulcolax suppository as needed for constipation. WBC decreased to 4.2. Na improved to 147. K slightly decreased to 3.5 and oral KDur ordered. Renal function is stable. Reduce rate of IVF. Urine culture: no growth after 1 day. INR 3.06; Coumadin per pharmacy. 12/10/17 Advance diet as tolerated. Pt will try dulcolax suppository if no bowel movement with brown cow. will obtain venous doppler of left leg - INR is therapeutic so DVT is unlikely, though she was very tender. K still slightly low. IVF have been dc'd. Will give another dose of Kdur. Na 146, down from 147. UC +strep viridans -- cont Rocephin.
[2017-12-10] MEDS: PANTOPRAZOLE 40 MG INJECTION IVP SCH (08:52)
--- NOTE | 2017-12-10 09:44 | Ultrasound Report ---
Indication: left calf/achilles pain PROCEDURE: US venous doppler LE LT: Encounter: Initial Comparison: None Technique: Color Doppler duplex and grayscale sonographic imaging of the left lower extremity was performed. Findings: There is no evidence for acute deep venous thrombosis in the left thigh. Specifically, serial graded compression was performed from the inguinal ligament to the popliteal bifurcation, on the left thigh, demonstrating appropriate compressibility of the deep venous system. In addition, color and pulsed Doppler demonstrate appropriate spontaneous flow, variation with respiration, and augmentation with calf compression. At the ankle, normal flow is identified in the posterior tibial veins; these vessels are also normal in caliber. Impression: No evidence of acute DVT in the left lower limb. .
[2017-12-10] MEDS ORDERED: WARFARIN 1 MG TABLET PO SCH (12:00)
[2017-12-11] MEDS: AMIODARONE 200 MG TABLET PO SCH (08:01)
[2017-12-11] MEDS: CLOPIDOGREL 75 MG TABLET PO SCH (08:01)
[2017-12-11] MEDS: SERTRALINE 50 MG TABLET PO SCH (08:01)
--- NOTE | 2017-12-11 09:39 | Pharmacy Consult ---
Pharmacy Consult-Warfarin - Laboratory Information 12/08/17 12/08/17 12/08/17 05:51 05:51 11:50 Hgb 13.0 Hct 38.5 INR 2.95 H AST 21 ALT 15 Albumin 4.8 12/09/17 12/09/17 12/10/17 04:03 04:03 04:02 Hgb 11.5 L D 12.2 Hct 34.6 L 36.5 INR 3.06 H AST ALT Albumin 12/10/17 12/11/17 04:02 04:38 Hgb Hct INR 2.92 H 2.59 H AST ALT Albumin - Consult Information Warfarin consult: day 4 72 y.o. Female with history of a. fib. and chronic anti-coagulation with warfarin. Home warfarin dose 5 mg on Mon, Sat, Sat and 2.5 mg on Sat, , , Sat. Goal INR range= 2.0 to 3.0. date INR dose 12/08 2.95 2 mg 12/09 3.06 no dose given 12/10 2.92 1 mg 12/11 2.59 plan: 2.5 mg INR is in therapeutic range. Will give Warfarin 2.5 mg po x1 dose today. Patient is taking Cephalexin which has a potential for drug-drug interaction with warfarin and may increase INR/ risk of bleeding. Pharmacy will continue to monitor and dose. Thank you, Niki Concepcion [facility]
--- NOTE | 2017-12-11 11:04 | Discharge Summary ---
Discharge Information Date of admission: 12/08/17 07:38 Anticipated date of discharge: 12/11/17 Attending Physician: Alka Jacinto MD Primary care physician: Capri Maldonado MD Consults: none - Discharge Diagnosis (1) Small bowel obstruction Status: Acute (2) Hypernatremia Status: Acute (3) Acute abdominal pain Status: Acute (4) UTI (urinary tract infection) Status: Acute Acute partial small bowel obstruction-resolved Acute abdominal pain with nausea UTI (POA) with Strep viridans Hypernatremia (Na 149), present on admission - resolved Leukopenia (not POA) A-fib Chronic anticoagulation on warfarin secondary to a-fib Hypertension Hyperlipidemia Constipation Depression History of breast cancer - 1999 Hx recurrent UTI with antimicrobial resistant organism Obesity with BMI 30.6 - Procedures Procedures: none - Laboratory Labs: 12/10/17 04:02 12/11/17 04:38 Liver enzymes were normal on admission. Lipase was normal at 205 Urinalysis on admission revealed +1 leukocyte esterase, 50-200 white cells, 4+ bacteria - Microbiology Microbiology 12/08/17 05:51 Urine, Voided (Cc/notcc) Urine Culture - Final Streptococcus viridans group - Radiology Radiology: Chest /abdominal x-ray 12/08/2017 Impression: 1. Mild chronic lung changes without acute cardiopulmonary findings. 2. Somewhat disproportionate loops of small bowel in the left mid abdomen which could indicate a partial small bowel obstruction. 3. No free air identified on the upright view. CT abdomen and pelvis with contrast 12/08/2017 Findings: Heart size is within normal limits. Lung bases demonstrate no acute findings. Liver, spleen, gallbladder, biliary tree, pancreas and adrenals are unremarkable. Both kidneys are unremarkable. As suspected from the plain films patient shows disproportionate dilatation of several loops of small bowel suggesting a partial small bowel obstruction. Patient showed diverticulosis involving the distal bowel without acute diverticulitis. No free air or free fluid is identified. Bladder contour is unremarkable. Reformatted imaging of the spine showed no fractures but did show some degenerative changes throughout the visualized thoracolumbar spine. Impression: 1. Partial small bowel obstruction. 2. Diverticulosis with moderate volume of stool but no acute diverticulitis. 3. No free air or free fluid or free air noted. 4. Findings were communicated to the ordering ER clinician when callback study provided. Two-view abdomen 12/09/2017 IMPRESSION: 1. Decrease in visible gas distended small bowel loops when compared with one day earlier with a few mild residual slightly prominent small bowel loops in the midabdomen. There is gas and stool within the colon and rectum. Continued follow-up is recommended. Venous Doppler left leg Impression: No evidence of acute DVT in the left lower limb. History of Present Illness HPI: Cindy Machuca is a pleasant patient of Dr. Maldonado, who also follows with Dr. Stepan Fuentes for her a-fib and CAD as well as Dr. Millan due to her history of breast cancer in 1999. She reports that yesterday, 12/07/17, she began to have colicky, gas like abdominal pain which progressively worsened throughout the night. She also complains of some nausea but denies any vomiting. She denies any recent illnesses, fevers, chills, chest pain, shortness of breath or diarrhea. She does admit to constipation and reports having a hard stool yesterday. While at home, she tried 2 doses of Gas-X and 2 doses of stool softener without improvement. She has a history of bowel obstruction in 2014. Due to her increasing pain, she presented to [facility] ED today, 12/08/17. Labs revealed hypernatremia (Na 149) with mild hyperglycemia (Glu 122). She denies a history of diabetes. UA revealed 50-200 WBC with 4+ bacteria. She has a history of frequent UTIs and is unable to specify if she has had any recent dysuria or urinary symptoms. CT abdomen/pelvis revealed mid small bowel obstruction with noted diverticulosis and no diverticulitis. Dr. Lee was consulted and she was accepted into inpatient status for further evaluation, IV hydration, close monitoring for deterioration and possible surgical consultation. Immediately prior to her leaving the ED to be transferred to the floor, she had a large BM. She denies any blood or dark tarry stools. Objective Vital signs: Temperature 97.1 F 12/11/17 07:36 Pulse Rate 56 L 12/11/17 08:00 Respiratory Rate 20 12/11/17 07:36 Blood Pressure 105/60 12/11/17 07:36 Pulse Oximetry 95 12/11/17 07:36 Height/Weight/BMI: Height 1.75 m Weight 91.1 kg Body Mass Index 30.7 Hospital Course This is a general summary of the patient's hospital course. For more details refer to the complete medical record. Hospital course: 12/08/17 Patient admitted to inpatient status under the care of Dr. Lee. While in the ED, she received 1L NS bolus as well as ketorolac 30mg IV x 1 dose , Compazine 10mg po x 1 dose and Zantac 300mg po x 1 dose. She also received Bentyl 20mg po x 1 dose. Nursing reports patient had a large BM immediately prior to being transferred to the medication floor. Pain improved and nausea resolved. Continue pain control with morphine PRN. Zofran as needed for nausea/vomiting. Given the patient's improved condition as well as resolution in nausea without vomiting, will hold off on NG placement. Recommend placement of NG if patient begins vomiting or pain worsens. Maintain NPO status with sips and chips. May take home medications. Continue amiodarone 200mg daily, Plavix 75mg daily and Coumadin for treatment of a-fib and DVT prophylaxis. Pharmacy to manage Coumadin. Protonix for GI protection. Will check INR now given chronic anticoagulation with warfarin. Pharmacy consulted for warfarin management. Recheck labs in AM to monitor blood counts, electrolytes and renal function. Upon discharge, patient's care will be returned to her PCP, Dr. Maldonado. Patient requests to be a LIMITED CODE and does not want intubation. 12/09/17 Abdominal symptoms much improved. KUB/Up right showing radiographic improvement. Will advance diet to clears. May have Dulcolax suppository as needed for constipation. WBC decreased to 4.2. Na improved to 147. K slightly decreased to 3.5 and oral KDur ordered. Renal function is stable. Reduce rate of IVF. Urine culture: no growth after 1 day. INR 3.06; Coumadin per pharmacy. 12/10/17 Advance diet as tolerated. Pt will try dulcolax suppository if no bowel movement with brown cow. will obtain venous doppler of left leg - INR is therapeutic so DVT is unlikely, though she was very tender. K still slightly low. IVF have been dc'd. Will give another dose of Kdur. Na 146, down from 147. UC +strep viridans -- cont Rocephin. 12/11/2017 The patient's partial small bowel obstruction seems to have completely resolved. She is eating and drinking a regular diet without difficulties. Abdominal pain has resolved. Constipation resolved with milk of magnesia, prune juice and Dulcolax suppository yesterday. She did have pain in her posterior left calf yesterday and venous Doppler was negative for DVT. She has been up walking without difficulties. The patient was found to have UTI with strep viridans which was mostly asymptomatic. She received 2 days of IV Rocephin and yesterday was started on Keflex. Overall she is doing quite well today. She is ready for dismissal to home. On exam she is alert and oriented and in no acute distress. Chest is clear to auscultation. Cardiovascular reveals a regular rate and rhythm. Abdomen is soft and nontender. Extremities are free of edema. Dismiss to home on 3 more days of oral Keflex for UTI. She will be placed on MiraLAX daily to prevent constipation. She will need follow-up with Dr. Maldonado as an outpatient. She will need an INR on December 13 as outpatient to monitor her Coumadin Pharmacy warfarin protocol was followed this hospitalization, please see note below: "Warfarin consult: day 4 72 y.o. Female with history of a. fib. and chronic anti-coagulation with warfarin. Home warfarin dose 5 mg on Mon, Wed, Sat and 2.5 mg on Sat, , , Sat. Goal INR range= 2.0 to 3.0. date INR dose 12/08 2.95 2 mg 12/09 3.06 no dose given 12/10 2.92 1 mg 12/11 2.59 plan: 2.5 mg INR is in therapeutic range. Will give Warfarin 2.5 mg po x1 dose today. Patient is taking Cephalexin which has a potential for drug-drug interaction with warfarin and may increase INR/ risk of bleeding." I did discuss the patient's hospital course and discharge plans with Dr. Maldonado. Time spent with patient: discharge greater than 30 minutes Resuscitation Status: Do Not Intubate Discharge Plan - Discharge Disposition Discharge Date: 12/11/17 Disposition: Discharged Home, Self-Care *Condition: Improved Reason For Visit (Visit label in EMR): SBO - Discharge Medications *Discharge Medications: New Peg 3350 [id number] G Bottle [Miralax] 17 gm PO DAILY #1 bottle CephALEXin [Keflex 500 mg] 500 mg PO Q12HR #6 cap Warfarin [Coumadin] 2.5 mg PO NOON #1 tab Continue Clopidogrel [Plavix] 75 mg PO DAILY Amiodarone [Pacerone] 200 mg PO DAILY Nitroglycerin [Nitrostat] 0.4 mg SL Q5MIN3 PRN #0 PRN Reason: Chest Pain LORazepam [Lorazepam] 1 mg PO BID PRN #0 tab PRN Reason: PRN ORDERS Acetaminophen [Acetaminophen Extra Strength] 500 mg PO Q4H PRN PRN Reason: Pain Sertraline [Zoloft] 50 mg PO DAILY Discontinued Warfarin [Coumadin] 2.5 mg PO HS Warfarin Sodium [Coumadin] 5 mg PO 3XW - Discharge Packet/Instructions *Diet: Cardiac diet *Activity: Activity as tolerated *Pain Management/Treatment: Tylenol as needed *Wound Care: Not applicable Additional Instructions: Take Coumadin 2.5 mg on December 12 . Check an INR on Saturday, December 13 at your doctor's office and your physician will notify you of further Coumadin orders *Expected Signs/Symptoms: MiraLAX could cause diarrhea and you can decrease to one half capful every day or every other day if you are experiencing diarrhea. If diarrhea does not resolve, please notify your doctor *Notify Physician if: Severe diarrhea, abdominal pain, nausea and vomiting or abnormal bleeding *During Business Hours Contact: Call Dr. Maldonado's office *After Business Hours Contact: [facility] at [phone] Maldonado or her partner paged *Pending Lab/Results: No Pending Lab - Referrals/Follow Up *Referrals/Follow Up: Capri Maldonado MD [Primary Care Provider] - 1 Week - Patient Handouts Patient Handouts: Bowel Obstruction (GEN) - Dismissal Complete Discharge Instructions are:: Complete Physician Narrative - Narrative Attestation Narrative: Date: 12/11/17 Time: 3302
[2017-12-11 11:56] VITALS: BP 100/61; PULSE 63; RESP 24; TEMP 97.7; O2SAT 98
[2017-12-11] MEDS ORDERED: WARFARIN 2.5 MG TABLET PO SCH (12:00)
== END 2017-12-11 13:15 | disposition home or self-care (01) | DRG 389 ==
LOC: ED 03:03 → SUATTDRO 07:38 → EDHOLD 07:38 → MED 08:45
PROVIDERS: ADMIT Hospitalist; ATTEND Internal Medicine